=== PATIENT | female | born 1950 | race African-American/Black ===

== ENCOUNTER 2018-06-24 11:59 | Day surgery (SDC) | payer MEDICARE, MEDICAID ==
[~2018-06-24 11:59] MED LIST: Buffered Lidocaine 0.9% SYRIN* 5 ML/SYR SYRINGE INTRADERM ONE
[2018-06-24] MEDS ORDERED: DiMENhydriNATE IV* 50 MG/ML VIAL IV PUSH PRN (14:04)
[2018-06-24] MEDS ORDERED: Naloxone* 0.4 MG/ML 1 ML VIAL IV PRN (14:04)
[2018-06-24] MEDS ORDERED: Acetaminophen TAB* 325 MG PO PRN (14:04)
[2018-06-24] MEDS ORDERED: fentaNYL* 50 MCG/ML 2 ML VIAL (100 MCG VIAL) ONE (14:13)
[2018-06-24] MEDS ORDERED: Midazolam* 1 MG/ML 5 ML VIAL (5 MG) ONE (14:13)
[2018-06-24] MEDS ORDERED: KETAMINE HCL* 50 MG/ML 10 ML VIAL ONE (14:13)
[2018-06-24] MEDS ORDERED: Propofol* 10 MG/ML 20 ML BTL ONE (14:32)
[2018-06-24] MEDS ORDERED: Ondansetron INJ* 2 MG/ML VIAL ONE (14:32)
[2018-06-24] MEDS ORDERED: Lidocaine 2% PF * 5 ML VIAL ONE (14:32)
[2018-06-24 15:32] VITALS: BP 152/74
--- NOTE | 2018-06-25 13:08 | PRO ---
CC: Roland Abebe MD * DATE OF PROCEDURE: 06/24/18 - [facility] PROCEDURE: Colonoscopy. REFERRING PROVIDER: Roland Abebe MD INDICATIONS: History of colon polyps. MEDICATIONS: Given by Anesthesia. PROCEDURE IN DETAIL: Full disclosure of risks were reviewed with the patient as detailed on the consent form. The patient was placed in the left lateral decubitus position and monitored with continuous pulse oximetry, capnography, interval blood pressure monitoring, and direct observation. After anorectal examination was performed, the adult colonoscope was inserted into the rectum and advanced under direct vision to the terminal ileum. The cecum was fully inflated allowing complete view including the medial wall between IC valve and the appendiceal orifice. Quality of the prep was good. A careful inspection was made as the colonoscope was withdrawn. A retroflex view of the rectum was performed. The findings and interventions are described below. FINDINGS: Anorectal exam was unremarkable. The scope was slowly advanced to the terminal ileum. The ileal mucosa was normal in appearance. The scope was then withdrawn into the cecum and then throughout the remainder of the colon. There were no polyps seen during this exam. There was significant vaca- diverticulosis. The diverticulum were wide-mouthed with stool vaults in a number of these diverticula. Retroflexion in the rectum revealed small internal hemorrhoids. The scope was withdrawn from the patient. The patient tolerated the procedure well. IMPRESSION: 1. Significant vaca-diverticulosis. 2. Small internal hemorrhoids. 3. No polyps. FOLLOWUP: 1. Can restart Xarelto. 2. Repeat colonoscopy in 5 years given history of polyps. Thank you very much for this referral. [id number]/[facility] [place] #: [id number] [place]
== END 2018-06-24 16:17 | disposition home or self-care (01) ==
LOC: OR 11:59
PROVIDERS: ATTEND Internal Medicine Gastroenterology
DX: Z12.11 Encounter for screening for malignant neoplasm of colon (principal); Z86.010 Personal history of colon polyps; K62.5 Hemorrhage of anus and rectum; I10 Essential (primary) hypertension; J44.9 Chronic obstructive pulmonary disease, unspecified; G47.33 Obstructive sleep apnea (adult) (pediatric); F41.8 Other specified anxiety disorders; Z79.01 Long term (current) use of anticoagulants; Z86.73 Personal history of transient ischemic attack (TIA), and cerebral infarction without residual deficits
CPT/HCPCS: J2250; J2405; J2704; J3010

== ENCOUNTER 2023-02-16 06:27 | Inpatient (IN) ==
[~2023-02-16 06:27] MED LIST changes: -Buffered Lidocaine 0.9% SYRIN* 5 ML/SYR SYRINGE INTRADERM ONE; +Buffered Lidocaine 1% SYRIN 1 ml INTRADERM ONE; +Dexamethasone IV 4 MG/ML VIAL 1 ml VIAL IV SLOW PU ONE; +Famotidine IV 10 MG/ML 2 ml VIAL (20 mg) IV ONE; +Lactated Ringers 1000 ml BAG 1,000 ML IV SCH
[2023-02-16] MEDS ORDERED: Famotidine IV 10 MG/ML 2 ml VIAL (20 mg) ONE (07:58)
[2023-02-16] MEDS ORDERED: Dexamethasone IV 4 MG/ML VIAL 1 ml VIAL ONE (07:58)
[2023-02-16] MEDS ORDERED: Heparin 5000 UNITS/ML 1 mL VIAL ONE (07:58)
[2023-02-16] MEDS ORDERED: Scopolamine 1 mg/72hr PATCH ONE (07:58)
[2023-02-16] MEDS ORDERED: ceFAZolin *3* GM in NS PREMIX 3 GM/100 ML BAG IV ONE (07:58)
[2023-02-16] MEDS ORDERED: Rocuronium 50 mg VIAL 10 mg/ml 5 ml VIAL (50 mg) ONE ×2 (08:18→10:09)
[2023-02-16] MEDS ORDERED: Ondansetron 4 mg VIAL 2 MG/ML 2 ml VIAL ONE ×2 (08:18→13:48)
[2023-02-16] MEDS ORDERED: fentaNYL 250 mcg/5 ml 50 MCG/ML 5 ml VIAL (250 MCG) ONE (08:18)
[2023-02-16] MEDS ORDERED: Lidocaine 2% PF 5 ML VIAL ONE (08:18)
[2023-02-16] MEDS ORDERED: Propofol 10 MG/ML 20 ML BTL ONE (08:18)
[2023-02-16] MEDS ORDERED: Midazolam 2 mg/2 ml VIAL 1 mg/ml 2 ml VIAL (2 mg) ONE (08:18)
[2023-02-16] MEDS: Scopolamine 1 mg/72hr PATCH TRANSDERM ONE ×2 (08:34→11:35)
[2023-02-16] MEDS ORDERED: Bupivacaine 0.25% w/EPI 10 ML SDV ONE (09:03)
[2023-02-16 09:33] LABS: Rapid COVID-19 Molecular Undetected (Undetected)
[2023-02-16] MEDS ORDERED: Morphine 4 MG/ML VIAL (1 ml) IV PRN (09:58)
[2023-02-16] MEDS ORDERED: Prochlorperazine 5 mg/ml 2 ml VIAL (10 mg) IV PRN (09:58)
[2023-02-16] MEDS ORDERED: Naloxone 0.4 mg VIAL 0.4 mg/ml 1 ml VIAL IV PRN (09:58)
[2023-02-16] MEDS ORDERED: Acetaminophen IV 1 GM/100ML 1,000 MG/100 ML BAG IV ONE (10:33)
[2023-02-16] MEDS ORDERED: fentaNYL 100 mcg/2 ml 50 MCG/ML VIAL ONE ×4 (10:49→13:06)
[2023-02-16] MEDS ORDERED: HYDROmorphone 0.5 MG/0.5 ML SYRINGE IV SLOW PU PRN (11:30)
[2023-02-16] MEDS ORDERED: Albuterol/Ipratropium NEB.SOL (2.5/0.5 MG) 3 ML NEB.SOLN INH PRN (11:34)
[2023-02-16] MEDS ORDERED: Prochlorperazine 5 mg/ml 2 ml VIAL (10 mg) ONE (12:03)
[2023-02-16] MEDS: fentaNYL 100 mcg/2 ml 50 MCG/ML VIAL IV PRN ×5 (12:04→13:08)
[2023-02-16] MEDS ORDERED: hydrALAZINE 20 mg/ml 1 ML Vial IV ONE (12:13)
[2023-02-16] MEDS: hydrALAZINE 20 mg/ml 1 ML Vial IV IV SLOW PU PRN ×4 (12:15→12:50)
[2023-02-16] MEDS: Ondansetron 4 mg VIAL 2 MG/ML 2 ml VIAL IV PRN (13:58)
[2023-02-16] MEDS: Lactated Ringers 1000 ml BAG 1,000 ML IV SCH ×2 (13:58→20:47)
[2023-02-16] MEDS: Heparin 5000 UNITS/ML 1 mL VIAL SUBCUT SCH (21:01)
[2023-02-17] MEDS: Lactated Ringers 1000 ml BAG 1,000 ML IV SCH (03:39)
[2023-02-17] MEDS: Heparin 5000 UNITS/ML 1 mL VIAL SUBCUT SCH ×3 (06:30→21:27)
[2023-02-17] MEDS: HYDROcodone/ACET. 7.5/325 LIQ 15 ML UDC PO PRN ×2 (09:06→21:25)
[2023-02-17 11:02] LABS: ABS Lymphocytes 1.4 10^3/uL (1.0-4.8); ABS Monocytes 0.8 10^3/uL (0.0-0.9); ABS Neutrophils 9.7 10^3/uL (1.5-7.6); ABS Nucleated RBC 0.01 10^3/ul; Eosinophil % 0.2 %; Hematocrit 38.3 % (35-45); Hemoglobin 12.9 g/dL (11.5-14.3); Lymphocyte % 11.9 %; Mean Corpuscular Hemoglobin 29.6 pg (27-33); Mean Corpuscular Hgb Conc 33.6 g/dL (31-36); Mean Platelet Volume 9.4 fL (7.5-11.2); Nucleated Red Blood Cells % 0.1 /100 WBC (0.0-0.4); Platelet Count 266 10^3/uL (150-450); Red Blood Count 4.35 10^6/uL (3.63-4.92); Red Cell Distribution Width 14.1 % (12-17)
[2023-02-17 11:19] LABS: Calcium 9.9 mg/dL (8.6-10.3); Creatinine, Serum 1.11 mg/dL (0.51-0.95); eGFR CKD-EPI 53.5 (>60)
[2023-02-17] MEDS: D5W 1/2 NS KCl 20 meq 1000 ml 1,000 ML IV SCH ×2 (11:48→21:20)
[2023-02-17] MEDS: Ondansetron 4 mg VIAL 2 MG/ML 2 ml VIAL IV PRN (15:27)
[2023-02-18] MEDS: Heparin 5000 UNITS/ML 1 mL VIAL SUBCUT SCH ×2 (05:53→13:49)
[2023-02-18] MEDS: D5W 1/2 NS KCl 20 meq 1000 ml 1,000 ML IV SCH (05:53)
[2023-02-18 10:16] VITALS: BP 110/55
== END 2023-02-18 14:45 | disposition home or self-care (01) | DRG 621 ==
LOC: OR 06:27 → SSU 14:05
PROVIDERS: ADMIT Surgery; ATTEND Surgery

== ENCOUNTER 2024-01-11 08:32 | Inpatient (IN) ==
[~2024-01-11 08:32] MED LIST changes: -Buffered Lidocaine 1% SYRIN 1 ml INTRADERM ONE; -Dexamethasone IV 4 MG/ML VIAL 1 ml VIAL IV SLOW PU ONE; -Famotidine IV 10 MG/ML 2 ml VIAL (20 mg) IV ONE; -Lactated Ringers 1000 ml BAG 1,000 ML IV SCH; +NS 0.45% 1000 ml BAG 1,000 ML IV SCH; +Naloxone 0.4 mg VIAL 0.4 mg/ml 1 ml VIAL IV PRN; +Ondansetron 4 mg VIAL 2 MG/ML 2 ml VIAL IV PRN; +fentaNYL 100 mcg/2 ml 50 MCG/ML VIAL IV PRN
[2024-01-11] MEDS ORDERED: ceFAZolin *3* GM in NS PREMIX 3 GM/100 ML BAG IV ONE (08:54)
[2024-01-11] MEDS ORDERED: Heparin 5000 UNITS/ML 1 mL VIAL ONE (08:55)
[2024-01-11 09:10] LABS: Rapid COVID-19 Molecular Undetected (Undetected)
[2024-01-11] MEDS ORDERED: Ondansetron 4 mg VIAL 2 MG/ML 2 ml VIAL IV PRN (09:37)
[2024-01-11] MEDS ORDERED: Naloxone 0.4 mg VIAL 0.4 mg/ml 1 ml VIAL IV PRN (09:39)
[2024-01-11] MEDS ORDERED: Dexamethasone IV 4 MG/ML VIAL 1 ml VIAL ONE (09:41)
[2024-01-11] MEDS ORDERED: Lidocaine 2% PF 5 ML VIAL ONE (09:41)
[2024-01-11] MEDS ORDERED: Rocuronium 50 mg VIAL 10 mg/ml 5 ml VIAL (50 mg) ONE ×2 (09:41→13:45)
[2024-01-11] MEDS ORDERED: fentaNYL 250 mcg/5 ml 50 MCG/ML 5 ml VIAL (250 MCG) ONE (09:41)
[2024-01-11] MEDS ORDERED: Propofol 10 MG/ML 20 ML BTL ONE (09:41)
[2024-01-11] MEDS ORDERED: Ondansetron 4 mg VIAL 2 MG/ML 2 ml VIAL ONE (09:41)
[2024-01-11] MEDS ORDERED: Midazolam 2 mg/2 ml VIAL 1 mg/ml 2 ml VIAL (2 mg) ONE (09:41)
[2024-01-11] MEDS ORDERED: Bupivacaine 0.25% EPI 200,000 30 ML SDV ONE (11:42)
[2024-01-11] MEDS ORDERED: Methylene Blue 1% (ANTIDOTE) 10 MG/ML 10 ML SDV VIAL IVPB ONE (11:42)
[2024-01-11] MEDS ORDERED: Glycopyrrolate IV 0.2 MG/ML 1 ML VIAL ONE (12:29)
[2024-01-11] MEDS ORDERED: hydrALAZINE 20 mg/ml 1 ML Vial IV ONE (13:28)
[2024-01-11] MEDS ORDERED: HYDROmorphone 0.5 MG/0.5 ML SYRINGE ONE ×2 (13:31→13:43)
[2024-01-11] MEDS ORDERED: Labetalol IV 5 MG/ML 20 ml VIAL ONE (13:44)
[2024-01-11] MEDS ORDERED: Cyclosporine 0.05% OPHTH (NF) 0.4 ML VIAL BOTH EYES PRN (15:44)
[2024-01-11] MEDS ORDERED: Albuterol 2.5mg/3 ml (0.083%) NEB.SOLN INH PRN (15:44)
[2024-01-11] MEDS ORDERED: fentaNYL 100 mcg/2 ml 50 MCG/ML VIAL ONE (16:15)
[2024-01-11] MEDS: fentaNYL 100 mcg/2 ml 50 MCG/ML VIAL IV PRN (16:19)
[2024-01-11] MEDS: Ondansetron 4 mg VIAL 2 MG/ML 2 ml VIAL IV PRN (18:21)
[2024-01-11] MEDS: Lactated Ringers 1000 ml BAG 1,000 ML IV SCH ×2 (18:23→19:53)
[2024-01-11] MEDS: Albuterol HFA INHALER 8 gm MDI INH PRN (18:55)
[2024-01-11] MEDS: Scopolamine 1 mg/72hr PATCH TRANSDERM PRN (19:08)
[2024-01-11] MEDS: HYDROmorphone 1 MG/1 ML SYRINGE IV SLOW PU PRN (19:46)
[2024-01-11] MEDS: Acetaminophen IV 1 GM/100ML 1,000 MG/100 ML BAG IV PRN (19:49)
[2024-01-11] MEDS: Buffered Lidocaine 1% SYRIN 1 ml INTRADERM ONE (19:52)
[2024-01-11] MEDS: Acetaminophen IV 1 GM/100ML 1,000 MG/100 ML BAG IV ONE (19:52)
[2024-01-12 08:01] LABS: ABS Basophils 0.1 10^3/uL (0.0-0.1); ABS Lymphocytes 1.1 10^3/uL (1.0-4.8); ABS Monocytes 0.9 10^3/uL (0.0-0.9); ABS Neutrophils 9.2 10^3/uL (1.5-7.6); ABS Nucleated RBC 0.01 10^3/ul; Hematocrit 38.8 % (35-45); Hemoglobin 12.9 g/dL (11.5-14.3); Lymphocyte % 9.9 %; Mean Corpuscular Hemoglobin 30.3 pg (27-33); Mean Corpuscular Hgb Conc 33.3 g/dL (31-36); Mean Corpuscular Volume 90.8 fL (80-97); Mean Platelet Volume 9.1 fL (7.5-11.2); Nucleated Red Blood Cells % 0.1 %/100WBC (0.0-0.8); Platelet Count 254 10^3/uL (150-450); Red Blood Count 4.28 10^6/uL (3.63-4.92); Red Cell Distribution Width 13.6 % (12-17); White Blood Count 11.3 10^3/uL (3.8-11.8)
[2024-01-12] MEDS: Tiotropium Brom/Olodaterol MDI (ACUTE) INH SCH (08:04)
[2024-01-12 08:24] LABS: Calcium 9.5 mg/dL (8.6-10.3); Creatinine, Serum 1.03 mg/dL (0.51-0.95); Potassium 4.2 mmol/L (3.5-5.0); eGFR CKD-EPI 58.1 (>60)
[2024-01-12] MEDS: Pantoprazole VIAL 40 MG VIAL IV SCH (09:12)
[2024-01-12] MEDS: HYDROcodone/ACET. 7.5/325 LIQ 15 ML UDC PO PRN (09:12)
[2024-01-12] MEDS: D5W 1/2 NS KCl 20 meq 1000 ml 1,000 ML IV SCH (15:45)
[2024-01-13] MEDS: D5W 1/2 NS KCl 20 meq 1000 ml 1,000 ML IV SCH (04:04)
[2024-01-13 09:33] LABS: ABS Eosinophils 0.1 10^3/uL (0.0-0.5); ABS Lymphocytes 1.2 10^3/uL (1.0-4.8); ABS Monocytes 0.6 10^3/uL (0.0-0.9); ABS Neutrophils 5.5 10^3/uL (1.5-7.6); Eosinophil % 1.4 %; Hematocrit 37.4 % (35-45); Hemoglobin 12.3 g/dL (11.5-14.3); Lymphocyte % 15.6 %; Mean Corpuscular Hemoglobin 29.8 pg (27-33); Mean Corpuscular Hgb Conc 32.8 g/dL (31-36); Mean Corpuscular Volume 90.8 fL (80-97); Mean Platelet Volume 8.9 fL (7.5-11.2); Platelet Count 241 10^3/uL (150-450); Red Blood Count 4.12 10^6/uL (3.63-4.92); Red Cell Distribution Width 13.8 % (12-17); White Blood Count 7.4 10^3/uL (3.8-11.8)
[2024-01-13 10:07] LABS: Calcium 8.9 mg/dL (8.6-10.3); Creatinine, Serum 0.91 mg/dL (0.51-0.95); Potassium 3.9 mmol/L (3.5-5.0); eGFR CKD-EPI 67.4 (>60)
[2024-01-13 22:40] LABS: Calcium 9.1 mg/dL (8.6-10.3); Creatinine, Serum 0.78 mg/dL (0.51-0.95); Potassium 4.3 mmol/L (3.5-5.0); eGFR CKD-EPI 81.2 (>60)
[2024-01-13] MEDS: DULoxetine DR 60 mg CAP PO SCH (22:44)
[2024-01-13] MEDS ORDERED: Dextrose 50% Syringe 50 ml 25 GM/50 ML SYRINGE IV PUSH PRN (23:13)
[2024-01-14 10:56] VITALS: BP 113/66
== END 2024-01-14 13:15 | disposition home or self-care (01) | DRG 327 ==
LOC: MCHOB 08:32 → AA 09:37 → SSU 18:09
PROVIDERS: ADMIT Surgery; ATTEND Surgery

== ENCOUNTER 2024-04-15 21:23 | Observation (INO) ==
[2024-04-15] MEDS: Morphine 4 MG/ML VIAL (1 ml) IV ONE ×2 (22:22→23:35)
[2024-04-15 22:31] LABS: ABS Basophils 0.1 10^3/uL (0.0-0.1); ABS Lymphocytes 1.4 10^3/uL (1.0-4.8); ABS Monocytes 0.6 10^3/uL (0.0-0.9); Eosinophil % 0.1 %; Hematocrit 36.8 % (35-45); Hemoglobin 11.9 g/dL (11.5-14.3); Lymphocyte % 15.7 %; Mean Corpuscular Hemoglobin 28.7 pg (27-33); Mean Corpuscular Hgb Conc 32.5 g/dL (31-36); Mean Corpuscular Volume 88.3 fL (80-97); Mean Platelet Volume 8.6 fL (7.5-11.2); Platelet Count 376 10^3/uL (150-450); Red Blood Count 4.17 10^6/uL (3.63-4.92); Red Cell Distribution Width 15.4 % (12-17); White Blood Count 9.1 10^3/uL (3.8-11.8)
[2024-04-15 22:37] LABS: INR 1.56 (0.85-1.14)
[2024-04-15 23:29] LABS: Anion Gap 10 mmol/L (2-16); Blood Urea Nitrogen 28 mg/dL (6-24); CO2 Carbon Dioxide 28 mmol/L (22-32); Calcium 9.6 mg/dL (8.6-10.3); Chloride 102 mmol/L (101-111); Creatinine, Serum 0.82 mg/dL (0.51-0.95); Glucose 99 mg/dL (70-100); Sodium 140 mmol/L (135-145); eGFR CKD-EPI 76.4 (>60)
[2024-04-15 23:44] LABS: Potassium, Whole Blood 4.1 mmol/L (3.4-4.5)
[2024-04-16] MEDS: Morphine 4 MG/ML VIAL (1 ml) IV ONE (01:26)
[2024-04-16] MEDS: fentaNYL 100 mcg/2 ml 50 MCG/ML VIAL IV SLOW PU ONE (01:57)
[2024-04-16] MEDS: Lactated Ringers 1000 ml BAG 1,000 ML IV ONE (02:58)
[2024-04-16] MEDS: HYDROmorphone 1 MG/1 ML SYRINGE IV ONE ×2 (02:58→05:48)
[2024-04-16] MEDS ORDERED: Polyethylene Glycol 3350 17 GM PACKET PO PRN (06:13)
[2024-04-16] MEDS ORDERED: Magnesium Hydroxide LIQ 30 ML UDC PO PRN (06:13)
[2024-04-16] MEDS ORDERED: Senna TAB 8.6 mg TAB PO PRN (06:13)
[2024-04-16] MEDS ORDERED: Albuterol 2.5mg/3 ml (0.083%) NEB.SOLN INH PRN (06:16)
[2024-04-16] MEDS ORDERED: Ondansetron 4 mg VIAL 2 MG/ML 2 ml VIAL ONE (08:45)
[2024-04-16] MEDS ORDERED: Propofol 10 MG/ML 20 ML BTL ONE (08:45)
[2024-04-16] MEDS ORDERED: Lidocaine 2% PF 5 ML VIAL ONE (08:45)
[2024-04-16] MEDS: Tiotropium Brom/Olodaterol MDI (ACUTE) INH SCH (09:00)
[2024-04-16] MEDS ORDERED: fentaNYL 100 mcg/2 ml 50 MCG/ML VIAL ONE (09:11)
[2024-04-16] MEDS ORDERED: Metoclopramide 5 MG/ML VIAL (10 mg) IV PRN (09:28)
[2024-04-16] MEDS ORDERED: fentaNYL 100 mcg/2 ml 50 MCG/ML VIAL IV PRN (09:28)
[2024-04-16] MEDS ORDERED: Ondansetron 4 mg VIAL 2 MG/ML 2 ml VIAL IV PRN ×2 (09:28→10:37)
[2024-04-16] MEDS ORDERED: Naloxone 0.4 mg VIAL 0.4 mg/ml 1 ml VIAL IV PRN (09:28)
[2024-04-16] MEDS ORDERED: NS 0.45% 1000 ml BAG 1,000 ML IV SCH (10:00)
[2024-04-16] MEDS ORDERED: Lactulose 30 ml UDC PO PRN (10:37)
[2024-04-16] MEDS ORDERED: Ondansetron ODT 4 mg TAB 4 MG TAB PO PRN (10:37)
[2024-04-16] MEDS: Buffered Lidocaine 1% SYRIN 1 ml INTRADERM ONE (10:49)
[2024-04-16] MEDS: Acetaminophen IV 1 GM/100ML 1,000 MG/100 ML BAG IV ONE (10:49)
[2024-04-16] MEDS: Lactated Ringers 1000 ml BAG 1,000 ML IV SCH ×2 (10:50→11:01)
[2024-04-16] MEDS: Scopolamine 1 mg/72hr PATCH TRANSDERM ONE (10:50)
[2024-04-16 13:27] VITALS: BP 116/74
[2024-04-16] MEDS ORDERED: DULoxetine DR 60 mg CAP PO SCH (21:00)
== END 2024-04-16 15:45 | disposition home or self-care (01) ==
LOC: EDHOLD 21:23 → ED 21:23 → EDHOLD 04-16 08:34 → AA 04-16 08:50 → SSU 04-16 10:34
PROVIDERS: ADMIT Internal Medicine; ATTEND Hospitalist